=== PATIENT | male | born 1970 | race Hispanic/Latino ===

== ENCOUNTER 2018-09-02 07:00 | Outpatient (RCR) | payer OTHER | END 2018-09-13 | LOC: PT 07:00 | PROVIDERS: ATTEND Neurological Surgery | DX: M50.120 Mid-cervical disc disorder, unspecified level (principal); M50.10 Cervical disc disorder with radiculopathy, unspecified cervical region; M54.2 Cervicalgia; M62.81 Muscle weakness (generalized); M53.82 Other specified dorsopathies, cervical region ==